=== PATIENT | female | born 1995 | race Caucasian/White ===

== ENCOUNTER 2022-02-03 13:20 | Emergency (ER) | payer SELFPAY ==
[~2022-02-03] VITALS: Ht 167.6 cm; Wt 65.8 kg
--- NOTE | 2022-02-03 13:20 | NUR ---
BIB FAMILY C/O PASSOUT LAST NIGHT AFTER TAKING XANAX. AT BED SIDE
--- NOTE | 2022-02-03 14:25 | NUR ---
PATIENT STILL CAN NOT PROVIDE URINE SPECIMEN MD AWARE.
--- NOTE | 2022-02-03 14:30 | NUR ---
Patient discharged to home in stable condition. Written and verbal after care instructions given. Patient verbalizes understanding of instruction.
--- NOTE | 2022-02-03 15:12 | NUR ---
Patient discharged to home in stable condition. Written and verbal after care instructions given. Patient verbalizes understanding of instruction.
[2022-02-03 15:15] VITALS: BP 132/94
== END 2022-02-03 15:15 | disposition home or self-care (01) ==
LOC: ER 13:26
DX: T42.4X1A Poisoning by benzodiazepines, accidental (unintentional), initial encounter (principal); Z88.8 Allergy status to other drugs, medicaments and biological substances; Y92.89 Other specified places as the place of occurrence of the external cause